=== PATIENT | female | born 1965 | race Caucasian/White ===

== ENCOUNTER 2016-12-23 10:20 | Emergency (ER) | payer MEDICARE ==
[2016-12-23 10:26] VITALS: BP 134/85
--- NOTE | 2016-12-23 10:51 | ER Document Report ---
ED General - General Chief Complaint: Arm Injury Stated Complaint: FALL/ARM INJURY Time Seen by Provider: 12/23/16 10:46 - HPI Notes: Sent in for urgent care due to dislocated radius fell last night in the shower. - Related Data Allergies/Adverse Reactions: codeine Allergy (Verified 12/23/16 10:47) Past Medical History - Social History Smoking Status: Current Every Day Smoker Chew tobacco use (# tins/day): No Frequency of alcohol use: Rare Drug Abuse: None Renal/ Medical History: Denies: Hx Peritoneal Dialysis Psychiatric Medical History: Reports: Hx Bipolar Disorder Review of Systems - Review of Systems Constitutional: No symptoms reported EENT: No symptoms reported Cardiovascular: No symptoms reported Respiratory: No symptoms reported Gastrointestinal: No symptoms reported Genitourinary: No symptoms reported Female Genitourinary: No symptoms reported Musculoskeletal: Other - Wrist pain Skin: No symptoms reported Hematologic/Lymphatic: No symptoms reported Neurological/Psychological: No symptoms reported Physical Exam - Vital signs Vitals: Temp Pulse Resp BP Pulse Ox 98.5 F 90 18 134/85 H 97 12/23/16 10:25 12/23/16 10:25 12/23/16 10:25 12/23/16 10:25 12/23/16 10:25 - Extremities General upper extremity: No: Normal inspection - Swelling to the dorsum of the left wrist. Course - Vital Signs Vital signs: Temp Pulse Resp BP Pulse Ox 98.5 F 90 18 134/85 H 97 12/23/16 10:25 12/23/16 10:25 12/23/16 10:25 12/23/16 10:25 12/23/16 10:25
--- NOTE | 2016-12-23 10:53 | ER Document Report ---
ED Medical Screen (RME) - General Chief Complaint: Arm Injury Stated Complaint: FALL/ARM INJURY Time Seen by Provider: 12/23/16 10:46 - HPI Notes: 12/23/16 10:53 Sent over from urgent care with left wrist injury states dislocated radius - Related Data Allergies/Adverse Reactions: codeine Allergy (Verified 12/23/16 10:47) Past Medical History - Social History Chew tobacco use (# tins/day): No Frequency of alcohol use: Rare Drug Abuse: None Renal/ Medical History: Denies: Hx Peritoneal Dialysis Psychiatric Medical History: Reports: Hx Bipolar Disorder Physical Exam - Vital signs Vitals: Temp Pulse Resp BP Pulse Ox 98.5 F 90 18 134/85 H 97 12/23/16 10:25 12/23/16 10:25 12/23/16 10:25 12/23/16 10:25 12/23/16 10:25 Course - Vital Signs Vital signs: Temp Pulse Resp BP Pulse Ox 98.5 F 90 18 134/85 H 97 12/23/16 10:25 12/23/16 10:25 12/23/16 10:25 12/23/16 10:25 12/23/16 10:25
--- NOTE | 2016-12-23 11:15 | RADIOLOGY REPORT (SQ) ---
EXAM DESCRIPTION: WRIST LEFT 3 VIEWS COMPLETED DATE/TIME: 12/23/2016 11:04 am REASON FOR STUDY: fx fall COMPARISON: None. NUMBER OF VIEWS: Three views. TECHNIQUE: AP, lateral, and oblique radiographic images acquired of the left wrist. LIMITATIONS: None. FINDINGS: MINERALIZATION: Normal. BONES: No acute fracture or dislocation. No worrisome bone lesions. Normal alignment. SOFT TISSUES: No soft tissue swelling. No foreign body. OTHER: No other significant finding. IMPRESSION: NEGATIVE STUDY OF THE LEFT WRIST. NO RADIOGRAPHIC EVIDENCE OF ACUTE INJURY. TECHNICAL DOCUMENTATION: JOB ID: [id number] [employer]- All Rights Reserved
--- NOTE | 2016-12-23 11:42 | ER Document Report ---
ED General - General Chief Complaint: Arm Injury Stated Complaint: FALL/ARM INJURY Time Seen by Provider: 12/23/16 10:46 - HPI Patient complains to provider of: Left wrist Notes: Patient coming in for evaluation of left wrist injury states she fell in shower last night on outstretched hand. Patient was seen a local urgent care diagnosed patient with a dislocated radius and came to the ER for further evaluation. Patient denies any other past medical problems denies any loss consciousness. Patient does have obvious swelling to the dorsum of the hand. - Related Data Allergies/Adverse Reactions: codeine Allergy (Verified 12/23/16 10:47) Past Medical History - Social History Smoking Status: Current Every Day Smoker Chew tobacco use (# tins/day): No Frequency of alcohol use: Rare Drug Abuse: None Family History: Reviewed & Not Pertinent Renal/ Medical History: Denies: Hx Peritoneal Dialysis Psychiatric Medical History: Reports: Hx Bipolar Disorder Review of Systems - Review of Systems Constitutional: No symptoms reported EENT: No symptoms reported Cardiovascular: No symptoms reported Respiratory: No symptoms reported Gastrointestinal: No symptoms reported Genitourinary: No symptoms reported Female Genitourinary: No symptoms reported Musculoskeletal: Other - Left hand swelling Skin: No symptoms reported Hematologic/Lymphatic: No symptoms reported Neurological/Psychological: No symptoms reported Physical Exam - Vital signs Vitals: Temp Pulse Resp BP Pulse Ox 98.5 F 90 18 134/85 H 97 12/23/16 10:25 12/23/16 10:25 12/23/16 10:25 12/23/16 10:25 12/23/16 10:25 Interpretation: Normal - General General appearance: Appears well, Alert - HEENT Head: Normocephalic, Atraumatic Eyes: Normal Pupils: PERRL - Respiratory Respiratory status: No respiratory distress Chest status: Nontender Breath sounds: Normal Chest palpation: Normal - Cardiovascular Rhythm: Regular Heart sounds: Normal auscultation Murmur: No - Abdominal Inspection: Normal Distension: No distension Bowel sounds: Normal Tenderness: Nontender Organomegaly: No organomegaly - Back Back: Normal, Nontender - Extremities General upper extremity: Nontender, Normal color, Normal ROM, Normal temperature. No: Normal inspection - Swelling to the dorsum of the hand. General lower extremity: Normal inspection, Nontender, Normal color, Normal ROM , Normal temperature, Normal weight bearing. No: Daksha's sign - Neurological Neuro grossly intact: Yes Cognition: Normal Orientation: AAOx4 [place] Coma Scale Eye Opening: Spontaneous [place] Coma Scale Verbal: Oriented [place] Coma Scale Motor: Obeys Commands [place] Coma Scale Total: 15 Speech: Normal Motor strength normal: LUE, RUE, LLE, RLE Sensory: Normal - Psychological Associated symptoms: Normal affect, Normal mood - Skin Skin Temperature: Warm Skin Moisture: Dry Skin Color: Normal Course - Re-evaluation Re-evalutation: 12/23/16 19:30 X-rays negative for any signs of acute fracture. Patient will be placed in a volar splint due to pain. Patient was educated about ice rest. Patient is follow-up with orthopedic doctors if pain is continued next 5-7 days. Patient voiced understanding will be discharged home. - Vital Signs Vital signs: Temp Pulse Resp BP Pulse Ox 98.5 F 90 18 134/85 H 97 12/23/16 10:25 12/23/16 10:25 12/23/16 10:25 12/23/16 10:25 12/23/16 10:25 Discharge - Discharge Clinical Impression: Left wrist sprain Qualifiers: Encounter type: initial encounter Qualified Code(s): S63.502A - Unspecified sprain of left wrist, initial encounter Condition: Good Disposition: HOME, SELF-CARE Instructions: Ice & Elevation ([facility]), Oral Narcotic Medication ([facility]), Wrist Sprain ([facility]) Additional Instructions: Please continue to wear the splint while you are out and about. Take Tylenol and Motrin for pain control. Take Ultram for severe pain. If your pain is not improved in the next 5 days recommend following up with the orthopedic doctors provided. Prescriptions: Tramadol HCl [Ultram 50 mg Tablet] 50 mg PO ASDIR PRN #20 tablet PRN Reason: Forms: Return to Work
== END 2016-12-23 12:02 | disposition home or self-care (01) ==
LOC: ER 10:20
DX: S63.502A Unspecified sprain of left wrist, initial encounter (principal); W01.0XXA Fall on same level from slipping, tripping and stumbling without subsequent striking against object, initial encounter; Y93.E1 Activity, personal bathing and showering; F17.200 Nicotine dependence, unspecified, uncomplicated; Z88.6 Allergy status to analgesic agent
CPT/HCPCS: 99283; 73110; L3908